=== PATIENT | male | born 1990 | race Two or more races ===

== ENCOUNTER 2019-04-17 13:19 | Emergency (ER) | payer OTHER ==
[~2019-04-17] VITALS: Ht 172.7 cm; Wt 172.4 kg
[2019-04-17 13:23] VITALS: BP 170/109
[2019-04-17] MEDS ORDERED: HYDR25SU18 RC (14:30)
--- NOTE | 2019-04-17 14:30 | PHYS DOC ---
Past Medical History Past Medical History: No Pertinent History Past Surgical History: No Surgical History Alcohol Use: Occasionally Drug Use: None Adult General Chief Complaint Chief Complaint: HEMORRHOIDS [facility] HPI 28-year-old male presents with a lump that is painful on his anus. He states he wasn't there Tuesday it was there yesterday and he had his mom checked it and take a picture of it. He states it is somewhat painful to touch especially when he has a bowel movement or wipes. He states it has not been bleeding. He has not had this before. He did use Preparation H yesterday without any major relief Review of Systems Review of Systems Constitutional: Denies fever or chills [] Eyes: Denies change in visual acuity, redness, or eye pain [] HENT: Denies nasal congestion or sore throat [] Respiratory: Denies cough or shortness of breath [] Cardiovascular: No additional information not addressed in HPI [] GI: Per history of present illness[] : Denies dysuria or hematuria [] Musculoskeletal: Denies back pain or joint pain [] Integument: Denies rash or skin lesions [] Neurologic: Denies headache, focal weakness or sensory changes [] Endocrine: Denies polyuria or polydipsia [] All other systems were reviewed and found to be within normal limits, except as documented in this note. Allergies Allergies Allergies Coded Allergies Type Severity Reaction Last Updated Verified No Known Drug Allergies 04/17/19 No Physical Exam Physical Exam Constitutional: Well developed, well nourished, no distress, non-toxic appearance, morbidly obese. [] HENT: Normocephalic, atraumatic, bilateral external ears normal, oropharynx moist, no oral exudates, nose normal. [] Eyes: PERRLA, EOMI, conjunctiva normal, no discharge. [] Neck: Normal range of motion, no tenderness, supple, no stridor. [] Cardiovascular:Heart rate regular rhythm, no murmur [] Lungs & Thorax: Bilateral breath sounds clear to auscultation [] Abdomen: Bowel sounds normal, soft, no tenderness, no masses, no pulsatile masses, small external hemorrhoid noted. [] Skin: Warm, dry, no erythema, no rash. [] Back: No tenderness, no CVA tenderness. [] Extremities: No tenderness, no cyanosis, no clubbing, ROM intact, no edema. [] Neurologic: Alert and oriented X 3, normal motor function, normal sensory function, no focal deficits noted. [] Psychologic: Affect normal, judgement normal, mood normal. [] Current Patient Data Vital Signs Vital Signs Date Time Temp Pulse Resp B/P (MAP) Pulse Ox O2 Delivery O2 Flow Rate FiO2 04/17/19 13:23 98.8 104 16 170/109 (129) 95 Room Air 98.8 EKG EKG [] Radiology/Procedures Radiology/Procedures [] Course & Med Decision Making Course & Med Decision Making Pertinent Labs and Imaging studies reviewed. (See chart for details) [] Dragon Disclaimer Dragon Disclaimer This electronic medical record was generated, in whole or in part, using a voice recognition dictation system. Departure Departure Impression: Primary Impression: Hemorrhoids Disposition: HOME, SELF-CARE Condition: STABLE Referrals: UNKNOWN PCP NAME (PCP) Patient Instructions: Hemorrhoids Additional Instructions: Return to the emergency department with any new or concerning symptoms Scripts Hydrocortisone Acetate (ANUSOL-HC) 25 Mg Supp.rect 1 SUPP RC BID, #28 SUPP 1 Refill Prov: ESTEBAN MOJICA DO 04/17/19 Problem Qualifiers Primary Impression: Hemorrhoids Hemorrhoid type: unspecified Qualified Codes: K64.9 - Unspecified hemorrhoids ESTEBAN MOJICA DO Apr 17, 2019 14:30
== END 2019-04-17 14:42 | disposition home or self-care (01) ==
LOC: ER 13:19
DX: K64.4 Residual hemorrhoidal skin tags (principal)
CPT/HCPCS: 99283